=== PATIENT | male | born 1945 | race Caucasian/White ===

== ENCOUNTER 2017-05-05 07:45 | Inpatient (IN) | payer OTHER ==
--- NOTE | 2017-05-05 08:27 | PDOC ---
Attending Attestation - Resident Resident Name: Justine Prajapati - ED Attending Attestation I have performed the following: I have examined & evaluated the patient, The case was reviewed & discussed with the resident, I agree w/resident's findings & plan, Exceptions are as noted - HPI HPI: 71 yo M hx DM, BPh, HTN, HL presents with low back radiating to the R leg associated with R leg weakness, difficulty ambulating. He states that his leg keeps collapsing under him. Denies numbness. He also notes that he has urge to urinate but feels as if he has an incomplete void. Denies fever, chills. No history of IVDU. - Physicial Exam PE: GENERAL: Awake, alert, and fully oriented, in no acute distress HEAD: No signs of trauma EYES: PERRLA, EOMI, sclera anicteric, conjunctiva clear ENT: Auricles normal inspection, hearing grossly normal, nares patent, oropharynx clear without exudates. Moist mucosa NECK: Normal ROM, supple, no lymphadenopathy, JVD, or masses LUNGS: Breath sounds equal, clear to auscultation bilaterally. No wheezes, and no crackles HEART: Regular rate and rhythm, normal S1 and S2, no murmurs, rubs or gallops ABDOMEN: Soft, nontender, normoactive bowel sounds. No guarding, no rebound. No masses EXTREMITIES: Normal range of motion, no edema. No clubbing or cyanosis. No cords, erythema, or tenderness NEUROLOGICAL: Cranial nerves II through XII grossly intact. Normal speech, normal gait SKIN: Warm, Dry, normal turgor, no rashes or lesions noted. SPINE: +Midline tenderness L1-5. No overlying skin changes. - Medical Decision Making Patient with abrupt onset low back pain, now with urinary symptoms and inability to ambulate. Will obtain MRI lumbar spine for further evaluation.
--- NOTE | 2017-05-05 08:44 | PDOC ---
History of Present Illness - General Stated Complaint: FALL Time Seen by Provider: 05/05/17 08:14 History Source: Patient, EMS - History of Present Illness Initial Comments: This is a 71 yo male with h/o DM, BPH, HTN, and HLD who was BIBA for worsened chronic low back pain, leg weakness, and urinary retention. He struggles with chronic back pain which worsened to a constant 7/10 last night and is now radiating down the back of his right leg. He got up from bed to walk to the restroom and urinate this morning, and his right leg began feeling weak and heavy, and it buckled beneath him. He slumped to the ground but denies hitting/ hurting any part of his body or losing consciousness. For the past 3-4 weeks he additionally has had urinary frequency and retention (feels like he always has to urinate and is only able to express a small amount of urine despite feeling that his bladder is full and slightly painful in the low abdomen). He took Tylenol for the symptoms last night. He additionally notes recent subjective fever, chills, sweats, and diarrhea. He denies any nausea, vomiting, diarrhea, change in weight, numbness, tingling, additional weakness other than the right leg, urinary or bowel incontincne, headache, change in speech or vision, balancing difficulty, chest pain, SOB, or burning/blood/strange colors/strange odors to the urine. He has had similar low back pain before, but never with these associated symptoms. Past History - Past Medical History Allergies/Adverse Reactions: Allergies Allergy/AdvReac Type Severity Reaction Status Date / Time No Known Allergies Allergy Verified 05/05/17 08:46 Home Medications: Ambulatory Orders Alfuzosin HCl [Alfuzosin HCl ER] 10 mg PO DAILY 04/20/15 Amlodipine/Atorvastatin [Amlodipine-Atorvast 10-40 mg] 1 each PO DAILY 04/20/15 Glipizide [Glipizide ER] 10 mg PO DAILY 04/20/15 Hydrochlorothiazide [Hctz -] 12.5 mg PO DAILY 04/20/15 Metformin HCl [Metformin HCl ER] 1,000 mg PO DAILY 04/20/15 Metoprolol Succinate [Toprol XL -] 25 mg PO DAILY 04/20/15 Omeprazole [Prilosec (RX)] 40 mg PO DAILY 04/20/15 Pravastatin Sodium [Pravachol (Nf)] 40 mg PO ASDIR 05/05/17 Solifenacin Succinate [Vesicare -] 10 mg PO DAILY 05/05/17 Diabetes: Yes Disorders: Yes (KIDNEY STONES) HTN: Yes Suicide Attempt (Hx): No - Psycho/Social/Smoking Cessation Hx Anxiety: No Suicidal Ideation: No Smoking Status: No Smoking History: Former smoker Have you smoked in the past 12 months: No Number of Cigarettes Smoked Daily: 0 Hx Alcohol Use: Yes (OCCASIONALLY) Drug/Substance Use Hx: No Substance Use Type: Alcohol Review of Systems - Review of Systems Able to Perform ROS?: Yes Constitutional: Yes: Chills, Diaphoresis (intermittent), Fever (subj). No: Unexplained wgt Loss HEENTM: No: Recent change in vision, Nose Congestion, Throat Pain Respiratory: No: Cough, Shortness of Breath Cardiac (ROS): Yes: Edema. No: Chest Pain, Palpitations ABD/GI: Yes: Diarrhea. No: Constipated, Nausea, Vomiting : No: Burning, Dysuria Musculoskeletal: No: Back Pain, Neck Pain Integumentary: No: Bruising, Rash Neurological: Yes: Weakness (right leg). No: Headache, Numbness, Tingling, Dizziness Endocrine: No: Unexplained Weight Gain, Unexplained Weight Loss *Physical Exam - Physical Exam General Appearance: Yes: Nourished, Appropriately Dressed, Obese, Other. No: Apparent Distress HEENT: positive: EOMI, MARIELLE, Normal Voice, Symmetrical, Hearing Grossly Normal. negative: Scleral Icterus (R), Scleral Icterus (L), Muffled/Hoarse voice, Nasal Congestion Neck: positive: Trachea midline, Supple. negative: Tender, Rigid Respiratory/Chest: positive: Lungs Clear, Normal Breath Sounds. negative: Respiratory Distress, Crackles, Rhonchi, Stridor, Wheezing Cardiovascular: positive: Regular Rhythm, Regular Rate, Edema, Systolic Murmur Gastrointestinal/Abdominal: positive: Normal Bowel Sounds, Tender (suprapubic), Soft, Protuberent. negative: Organomegaly, Pulsatile Mass, Guarding Rectal Exam: positive: other (slight decreased rectal tone, no stool in rectal vault) Musculoskeletal: positive: Normal Inspection, Vertebral Tenderness (L4-S1). negative: Decreased Range of Motion Extremity: positive: Normal Capillary Refill, Normal Inspection, Normal Range of Motion, Swelling (BLE pedal edema extending to proximal lower legs). negative: Tender, Cyanosis Integumentary: positive: Normal Color, Dry, Warm. 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 negative: Facial Droop, Numbness, Sensory Deficit, Confused Heart Score/ECG Review #1 ECG reviewed & interpreted by me at: 08:30 NSR rate 100, t-wave inversions in II, III, and aVF, QTc is 472 ED Treatment Course - LABORATORY CBC & Chemistry Diagram: 05/05/17 09:19 05/05/17 09:19 - RADIOLOGY Radiograph Interpretation: EXAM#: TYPE/EXAM: RESULT: [id number] MRI/LUMBAR SPINE MRI W/O CONTRAST MRI OF THE LUMBAR SPINE (without contrast) CLINICAL INFORMATION GIVEN: back pain, urinary retention, leg weakness The exam consists of sagittal and transaxial images obtained utilizing fast spin-echo and fast spin -echo STIR pulse sequences. There is maintenance of the lumbar lordosis. Minimal to mild L4-L5 and L5-S1 degenerative disc space narrowing is seen. There is minimal to mild multilevel bilateral degenerative facet hypertrophy. No discrete disc herniation is seen. There is mild L4-L5 and L5-S1 degenerative disc bulging. The remaining disc levels appear unremarkable. No central or lateral canal stenosis is noted. There is no discrete intradural abnormality. The conus medullaris appears unremarkable. No pathologic marrow signal alteration is seen. There is no vertebral body compression fracture. IMPRESSION: Mild multilevel degenerative disc bulging. Reported By: Tim Oswald MD 05/05/17 1621 Medical Decision Making - Medical Decision Making 71 YOM with h/o chronic back pain p/w worsened back pain, urinary retention, and right leg weakness. Exam notable for 3/5 strength to proximal RLE, ttp of L4-S1, mild ttp suprapubic region. DDX includes cord compression syndrome e.g. cauda equina, nerve impingement, spinal stenosis, UTI, spinal mass. Ordered is MRI lumbar spine WO, CBCD, CMP, Mg, Phos, EKG, UA cx. CBCD with WBC elevation, UA with glucosuria and proteinuria, otherwise labs WNL. MRI L-spine shows degenerative changes but no e/o cord compression/cauda equina. Case is discussed with Dr. Avila who recommends MRI C-spine and T-spine given persistent neurological sxs. Agrees with admission to inpatient for further management. Pt with persistent and slightly worsened midline L-spine pain from approximately L3-S1. Ordered is oxycodone 5 mg with partial relief. Ordered is C-spine and T-spine MRI WO contrast, CT head WO contrast. Spoke with Dr. Perico Ramsay who accepts admission to IP Med/Surg Dr. Reid. *DC/Admit/Observation/Transfer Diagnosis at time of Disposition: Urinary retention, Right leg weakness Back pain Qualifiers: Back pain location: low back pain Chronicity: unspecified Back pain laterality : midline Sciatica presence: unspecified whether sciatica present Qualified Code (s): M54.5 - Low back pain - Discharge Dispostion Condition at time of disposition: Guarded Admit: Yes - Referrals Referrals: Hiram Rich MD [Primary Care Provider] -
[2017-05-05 08:50] VITALS: BMI 35.5
[2017-05-05] MEDS ORDERED: ACETAMINOPHEN 500 MG TABLET (FP) PO ONE (09:05)
--- NOTE | 2017-05-05 09:14 | EKG ---
Test Reason : Blood Pressure : / mmHG Vent. Rate : 100 BPM Atrial Rate : 100 BPM P-R Int : 180 ms QRS Dur : 094 ms QT Int : 366 ms P-R-T Axes : 016 045 -18 degrees QTc Int : 472 ms NORMAL SINUS RHYTHM T WAVE ABNORMALITY, CONSIDER INFERIOR ISCHEMIA MARKED T WAVE ABNORMALITY, CONSIDER ANTEROLATERAL ISCHEMIA PROLONGED QT ABNORMAL ECG Confirmed by MD JONATHON, BENTON ([id number]) on 05/05/2017 9:14:38 AM Referred By: Confirmed By:BENTON HOLT MD
[2017-05-05] MEDS ORDERED: ACETAMINOPHEN 325 MG TABLET (FP) ONE (09:24)
[2017-05-05 09:42] LABS: BASOPHIL 0.3 % (0-2.0); EOSINOPHIL 0.2 % (0-4.5); MCH 29.8 pg (25.7-33.7); MCHC 33.8 g/dl (32.0-35.9); MEAN CELL VOLUME 88.2 fl (80-96); MEAN PLT VOLUME 7.8 fl (7.5-11.1); PLATELET COUNT 145 K/MM3 (134-434); RDW 13.6 % (11.9-15.9); WHITE BLOOD COUNT 13.3 K/mm3 (4.0-10.0)
[2017-05-05 09:45] LABS: URINE APPEARANCE CLEAR; URINE BILIRUBIN NEGATIVE (NEGATIVE); URINE BLOOD NEGATIVE (NEGATIVE); URINE COLOR LTYELLOW; URINE GLUCOSE (UA) 1+ (NEGATIVE); URINE KETONE NEGATIVE (NEGATIVE); URINE LEUK ESTERASE NEGATIVE (NEGATIVE); URINE NITRITE NEGATIVE (NEGATIVE); URINE UROBILINOGEN NEGATIVE mg/dL (0.2-1.0)
[2017-05-05 09:47] LABS: URINE PROTEIN 1+ (NEGATIVE)
[2017-05-05 09:51] LABS: ALBUMIN 3.7 g/dl (3.4-5.0); ANION GAP 11 (8-16); BILIRUBIN,TOTAL 1.9 mg/dL (0.2-1.0); CO2 25 mmol/L (21-32); GLUCOSE,RANDOM 149 mg/dL (74-106); PHOSPHOROUS 2.1 mg/dL (2.5-4.9); SGOT/AST 19 U/L (15-37); SGPT/ALT 35 U/L (12-78); TOT PROT 7.3 g/dl (6.4-8.2)
[2017-05-05 09:54] LABS: ALK PHOS 68 U/L (45-117)
[2017-05-05 09:55] LABS: URINE MUCUS RARE; URINE WBC 3 /hpf (3-5)
[2017-05-05 09:59] LABS: INR 1.14 (0.82-1.09); PROTHROMBIN TIME (PATIENT) 12.6 SEC (9.98-11.88)
[2017-05-05 10:01] LABS: ACTIVATED PTT 33.3 SECONDS (26.9-34.4)
[2017-05-05] MEDS ORDERED: NAPH,MB-DB/K PH,MBDB POWDER PACKET PO ONE (10:33)
[2017-05-05] MEDS ORDERED: MAGNESIUM OXIDE 400 MG TABLET (FP) PO ONE (10:33)
[2017-05-05] MEDS ORDERED: MAGNESIUM OXIDE 400 MG TABLET (FP) ONE (10:42)
[2017-05-05] MEDS ORDERED: oxyCODONE HCL 5 MG TABLET PO ONE (15:48)
[2017-05-05] MEDS ORDERED: oxyCODONE HCL 5 MG TABLET ONE (15:54)
[2017-05-05] MEDS ORDERED: morphine CARPU-JECT 2 MG/1 ML DISP.SYRIN IVPUSH PRN (19:06)
--- NOTE | 2017-05-05 20:42 | PN ---
Teaching Attending Note Name of Resident: Perico Ramsay ATTENDING PHYSICIAN STATEMENT I saw and evaluated the patient. I reviewed the resident's note and discussed the case with the resident. I agree with the resident's findings and plan as documented. SUBJECTIVE: This is a 71 year old man with a history of type 2 DM, BPH, HTN, hyperlipidemia, GERD who comes to the ER complaining of back pain, right leg weakness, and difficulty urinating. He says he had a cystoscopy last week and since then, he has been having difficulty urinating with dysuria. Last night, his chronic back pain, which is located in the middle of his lower back, became more severe. This morning, while trying to get out of bed to go to the bathroom , he noted his right leg was weak. He was unable to stand from sitting on the bed, and so he slid off the bed onto the floor. There was no head trauma, loss of consciousness. He denies pain and numbness in his right leg. OBJECTIVE: Vital Signs Period Temp Pulse Resp BP Sys/Shepherd Pulse Ox Last 24 Hr 98.1 F-99.3 F 80-96 19-20 135-159/65-78 95-96 HEART: S1S2, RRR LUNGS: Clear ABDOMEN: Obese, soft, non-tender, non-distended, normal BS EXTREMITIES: No edema BACK: No spinal, paraspinal, CVA tenderness NEUROLOGICAL: Alert, oriented. Strength 5/5 in all extremities. Patellar reflexes diminished bilaterally. Sensation intact. (+) straight leg raise on right ASSESSMENT AND PLAN: This is a 71 year old man with a history of type 2 DM, BPH, HTN, hyperlipidemia , GERD who presents to the ER with back pain, right leg weakness, and difficulty urinating. 1. Low back pain with right leg weakness - Possibly secondary to lumbar degenerative disease - Neurosurgery consulted by ER - Physical therapy 2. Hypokalemia - Replete potassium 3. Hypophosphatemia - NeutraPhos given in ER 4. Hypomagnesemia - Magnesium oxide PO given in ER - Magnesium sulfate IV 5. Moderate left C3-C4 foraminal stenosis 6. HTN - Continue Norvasc, HCTZ, Toprol XL 7. Hyperlipidemia - Continue Lipitor 8. BPH - Continue Uroxatral 9. GERD - Continue Prilosec 10. Type 2 DM - Hold Glipizide, Metformin - Fingersticks with Novolog sliding scale
--- NOTE | 2017-05-05 21:37 | HP ---
CHIEF COMPLAINT:low back pain urinary retention and right leg weakness PCP:Claudio HISTORY OF PRESENT ILLNESS: This is a 71 yo male with h/o DM, BPH, HTN, and HLD who was BIBA for worsened chronic low back pain, leg weakness, and urinary retention. Patient states his back pain got acutely worse when he woke up to go to the bathroom. He also was having difficult walking as his right leg became acutely weak. He slid slowly on to the ground but did not injure any part of his body. For the past 3-4 weeks he additionally has had urinary frequency and retention which has also gotten worse. He recently had a procedure for evaluation of his prostate by Dr. Yuval ariza, procedure sounds like and described as cystoscopy. He has had burning on urination ever since he had the procedure. He took Tylenol for the symptoms last night. Patient states he has had some chills but no fevers. He also has had 2 bowel movements recently which he describes as "normal". He denies any nausea, vomiting, diarrhea, change in weight, numbness, tingling, additional weakness other than the right leg, urinary or bowel incontinence, headache, change in speech or vision, balancing difficulty, chest pain, or shortness of breeath. he denies visual changes or neurological symptoms. Denies recent activities which may have strained his back. ER course was notable for: (1)labs (2)electrolyte repletement (3)MRI Recent Travel:Denies PAST MEDICAL HISTORY:HTN HLD DM BPH chronic back pain PAST SURGICAL HISTORY:Denies Social History: Smoking:in his youth Alcohol:1-2 drinks on weekends Drugs: denies Allergies No Known Allergies Allergy (Verified 05/05/17 08:46) HOME MEDICATIONS: Home Medications Home Medications Medication Instructions Recorded Alfuzosin HCl [Alfuzosin HCl ER] 10 mg PO DAILY 04/20/15 Amlodipine/Atorvastatin 1 each PO DAILY 04/20/15 [Amlodipine-Atorvast 10-40 mg] Glipizide [Glipizide ER] 10 mg PO DAILY 04/20/15 Hydrochlorothiazide [Hctz -] 12.5 mg PO DAILY 04/20/15 Metformin HCl [Metformin HCl ER] 1,000 mg PO DAILY 04/20/15 Metoprolol Succinate [Toprol XL -] 25 mg PO DAILY 04/20/15 Omeprazole [Prilosec (RX)] 40 mg PO DAILY 04/20/15 Pravastatin Sodium [Pravachol (Nf)] 40 mg PO ASDIR 05/05/17 Solifenacin Succinate [Vesicare -] 10 mg PO DAILY 05/05/17 REVIEW OF SYSTEMS CONSTITUTIONAL: Absent: diaphoresis, generalized weakness, malaise, loss of appetite, weight change Present: fever, chills HEENT: Absent: rhinorrhea, nasal congestion, throat pain, throat swelling, difficulty swallowing, mouth swelling, ear pain, eye pain, visual changes CARDIOVASCULAR: Absent: chest pain, syncope, palpitations, irregular heart rate, lightheadedness , peripheral edema RESPIRATORY: Absent: cough, shortness of breath, dyspnea with exertion, orthopnea, wheezing, stridor, hemoptysis GASTROINTESTINAL: Absent: abdominal pain, abdominal distension, nausea, vomiting, diarrhea, constipation, melena, hematochezia GENITOURINARY: Absent: hematuria, flank pain, genital pain Present: dysuria, frequency, urgency, hesitancy MUSCULOSKELETAL: Absent: myalgia, arthralgia, joint swelling, , neck pain Present: back pain SKIN: Absent: rash, itching, pallor HEMATOLOGIC/IMMUNOLOGIC: Absent: easy bleeding, easy bruising, lymphadenopathy, frequent infections ENDOCRINE: Absent: unexplained weight gain, unexplained weight loss, heat intolerance, cold intolerance NEUROLOGIC: Absent: headache, focal weakness or paresthesias, dizziness, unsteady gait, seizure, mental status changes, bladder or bowel incontinence PSYCHIATRIC: Absent: anxiety, depression, suicidal or homicidal ideation, hallucinations. PHYSICAL EXAMINATION Vital Signs - 24 hr 05/05/17 20:01 Temperature 98.1 F Pulse Rate [ 80 Apical] Respiratory 20 Rate Blood Pressure 135/70 [Right Arm] O2 Sat by Pulse 96 Oximetry (%) GENERAL: Awake, alert, and fully oriented, in no acute distress. HEAD: Normal with no signs of trauma. EYES: Pupils equal, round and reactive to light, extraocular movements intact, sclera anicteric, conjunctiva clear. No lid lag. EARS, NOSE, THROAT: Moist mucous membranes. NECK: Normal range of motion, supple without JVD LUNGS: Breath sounds equal, clear to auscultation bilaterally. No accessory muscle use. HEART: Regular rate and rhythm, normal S1 and S2 without murmur ABDOMEN: Soft, nontender, not distended, normoactive bowel sounds, no guarding, no rebound MUSCULOSKELETAL: Normal range of motion at all joints. No CVA tenderness. midline lumbar tenderness over L3-L4 area UPPER EXTREMITIES: 2+ pulses, warm, well-perfused. muscle strength 5/5 LOWER EXTREMITIES: warm, well-perfused. No calf tenderness. No peripheral edema. knee jerk diminished bilaterally. sensation equal in both lower extremities. Muscle strength globally 5/5/ surprisingly RLE weakness is only on ambulation while lying down strength is 5/5 at hip knee and ankle flexors and extensors. RLE straight leg raise ellicits pain in lower back NEUROLOGICAL: Cranial nerves II-XII intact. Normal speech. PSYCHIATRIC: Cooperative. Good eye contact. Appropriate mood and affect. SKIN: Warm, dry, normal turgor, no rashes or lesions noted, normal capillary refill. Rectal: no loss of tone MRI of Cervical thoracic and lumbar spine: all three read as degenerative disc bulging C3-C4 foraminal stenosis ASSESSMENT/PLAN: 71M with history of HTN DM HLD BPH presents with acute on chronic back pain associated with worsening urinary retention and right lower extremity weakness acute on chronic back pain: patient denies trauma or overuse of back muscles. possible he may be having a nerve compression due to multiple levels of degenerative disc bulging and areas of foraminal stenosis but unlikely these findings are the cause of his symptoms admit to inpatient services neuro checks q2h neurosurgery to review MRIs-Cervical thoracic and lumbar MRIs will consider neurology consult f/u neurosurgery recs urinary Retention with urinary dysuria/BPH: dysuria likely secondary to urethral trauma from procedure retention could be a manifestation of nerve compression or could be from worsening of BPH patient able to urinate at this time UA negative f/u UCx no ABx indicated at this time start doxazosin to substitute for alfuzosin restart vesicare will place blandon PRN will consider urology consult if needed-Dr. Yuval ariza Mild leukocytosis: likely reactive do not suspect infection monitor off ABx panculture of spikes Hyperbilirubinemia: will recheck in AM will fractionate bilirubin in AM HTN: restart home meds: HCTZ Amlodipine metoprolol DM: hold glipizide hold metformin BGM ACHS ISS ACHS HLD: home meds contain 2 statins pravastatin and atorvastatin in combination with amlodipine Will need to verify home meds will place on atorvastatin for now FEN: no IVF severe hypomagnesemia, hypophosphatemia, hypokalemia-repleted will recheck electrolytes in AM low sodium/diabetic diet PPx: HSQ/SCDs PPI as outpatient eill continue on protonix PT consult Patient's left with his medication list. Will need to verify some of his home meds as there is redundancy in his statins. patient seen and Case discussed with attending Dr. Georeg. Visit type - Emergency Visit Emergency Visit: Yes ED Registration Date: 05/05/17 Care time: The patient presented to the Emergency Department on the above date and was hospitalized for further evaluation of their emergent condition. - New Patient This patient is new to me today: Yes Date on this admission: 05/05/17 - Critical Care Critical Care patient: No
[2017-05-05] MEDS ORDERED: MAGNESIUM SULF 50% (8.12 MEQ/2 ML-1 GM VIAL) IVPB ONE (21:46)
[2017-05-05] MEDS ORDERED: oxyCODONE HCL 5 MG TABLET PO PRN (21:51)
[2017-05-05] MEDS ORDERED: INSULIN SLIDING SCALE (NOVOLOG) 1 VIAL SQ SCH (22:00)
[2017-05-05] MEDS ORDERED: ATORVASTATIN CA 10 MG TABLET (FP) PO SCH (22:00)
[2017-05-05] MEDS ORDERED: ATORVASTATIN CA 40 MG TABLET (FP) PO SCH (22:15)
[2017-05-05] MEDS: INSULIN SLIDING SCALE (NOVOLOG) 1 VIAL SQ SCH (22:17)
[2017-05-05] MEDS ORDERED: POTASSIUM CHLORIDE TABS 20 MEQ TABLET.ER (FP) PO ONE (22:53)
[2017-05-06] MEDS ORDERED: HEPARIN NA (PORCINE) 5,000 UNITS/ML 1ML VIAL SQ SCH (06:00)
[2017-05-06] MEDS: INSULIN SLIDING SCALE (NOVOLOG) 1 VIAL SQ SCH (07:12)
[2017-05-06 08:13] LABS: BASOPHIL 0.3 % (0-2.0); EOSINOPHIL 0.4 % (0-4.5); MCH 30.1 pg (25.7-33.7); MCHC 33.6 g/dl (32.0-35.9); MEAN CELL VOLUME 89.6 fl (80-96); MEAN PLT VOLUME 8.1 fl (7.5-11.1); PLATELET COUNT 154 K/MM3 (134-434); RDW 13.3 % (11.9-15.9); WHITE BLOOD COUNT 14.1 K/mm3 (4.0-10.0)
[2017-05-06 08:26] LABS: INR 1.22 (0.82-1.09); PROTHROMBIN TIME (PATIENT) 13.5 SEC (9.98-11.88)
[2017-05-06 08:29] LABS: ACTIVATED PTT 33.5 SECONDS (26.9-34.4)
[2017-05-06 08:43] LABS: CALCIUM 8.8 mg/dL (8.5-10.1)
[2017-05-06 08:50] LABS: ALBUMIN 3.6 g/dl (3.4-5.0); ALK PHOS 73 U/L (45-117); ANION GAP 12 (8-16); BILIRUBIN,TOTAL 2.8 mg/dL (0.2-1.0); CO2 24 mmol/L (21-32); CREATININE 1.1 mg/dL (0.7-1.3); GLUCOSE,RANDOM 201 mg/dL (74-106); MAGNESIUM 1.9 mg/dL (1.8-2.4); PHOSPHOROUS 2.4 mg/dL (2.5-4.9); SGOT/AST 12 U/L (15-37); SGPT/ALT 27 U/L (12-78); TOT PROT 7.2 g/dl (6.4-8.2)
[2017-05-06] MEDS ORDERED: PANTOPRAZOLE 40 MG TABLET (FP) PO SCH (10:00)
[2017-05-06] MEDS ORDERED: SOLIFENACIN SUCCINATE 5 MG TAB (FP) PO SCH (10:00)
[2017-05-06] MEDS ORDERED: METOPROLOL SUCCINATE 25 MG TAB.SR.24H (FP) PO SCH (10:00)
[2017-05-06] MEDS ORDERED: DOXAZOSIN MESYLATE 4 MG TABLET PO SCH (10:00)
[2017-05-06] MEDS ORDERED: HYDROCHLOROTHIAZIDE 12.5 MG CAPSULE (FP) PO SCH (10:00)
[2017-05-06] MEDS ORDERED: amLODIPine BESYLATE 10 MG TABLET (FP) PO SCH (10:00)
[2017-05-06] MEDS ORDERED: PT OWN MED DRAWER 7, Y5N ONE (10:22)
[2017-05-06] MEDS ORDERED: NAPH,MB-DB/K PH,MBDB POWDER PACKET PO ONE (10:30)
--- NOTE | 2017-05-06 10:43 | CONSULT ---
Consult - text type - Consultation Consultation Note: Asked to see this 71 year old male with a recent history of urinary difficulties and one day history of Right leg weakness. The patient reports difficulty moving his Right leg upon awakening yesterday and sliding gently to the floor when trying to get out of bed. He was unable to get up from this position without the assistance of his family. EMS was summoned and he was brought to the [facility] ER. MRI Lumbar did not identify any significant pathology which may account for these symptoms. Given that he has urinary difficulties and the entire Right leg was "heavy" and weak, it seems that this involves multiple myotomes and may represent a cord compression. MRI Cervical and Thoracic were obtained. There is no pathology identified on these studies which clearly explains his symptoms although very mild cervical spondylosis with disc bulges and mild ligamentum flavum hypertrophy narrows the spinal canal to just under 10 mm at several levels. This morning, the patient has recovered almost completely and is ambulatory. He has mild proximal Right leg weakness, but is otherwise non-focal. Case discussed with Dr. Reid. Although I am unable to establish a clear diagnosis, there does not appear to be an indication for acute Neurosurgical intervention. I have reviewed warning signs with the patient and have given him contact information to follow up with me in the clinic. All questions were answered.
[2017-05-06] MEDS ORDERED: LEVOFLOXACIN 500 MG TABLET (FP) PO SCH (10:45)
[2017-05-06 12:28] VITALS: BP 156/87; PULSE 74; TEMP 98.4
--- NOTE | 2017-05-06 16:09 | DS ---
Physical Examination Vital Signs: Vital Signs Temperature 98.4 F 05/06/17 09:00 Pulse Rate 74 05/06/17 09:00 Respiratory Rate 18 05/06/17 09:00 Blood Pressure 156/87 05/06/17 09:00 O2 Sat by Pulse Oximetry (%) 96 05/06/17 09:00 Findings/Remarks: this am , pt has minimal back pain. was able to walk and wwas steady. he felt his R leg was heavy. but able to move. no urinary retention . no numbness or tingling in LE . no incontinence to stool or urine PE : VS reviewed. NAD . CV: RRR LUng s; CTAB ext : no edema or erythema Neuro : no facial droop, EOMI, round reactive pupils . tongue and uvula at mid line. nl facial sensation . strength 5/5 in upper extremities proximally and distally. RLE eith 4/5 strength at level of hip flexion. 5/5 at knee flexionand extension, ankle dorsiflexion and plantar flexion . LLE has 5/5 strength proximally and distally. sensation to light touch NL. reflexes 2+ knee jerk and biceps and triceps reflexes. Rectal tone NL. gait: Nl , and steady Labs: CBC, BMP 05/06/17 06:45 05/06/17 06:45 Discharge Summary Reason For Visit: BACK PAIN, URINARY RETENSION Hospital Course: 71 y/o man with h/o HTN, DM , HLP, and chronic back pain who presented with worsening Lower back pain in lumbar area with RLE weakness. He also experienced urinary retention . of note patient had a problem with urinary retention for which he had a procedure with urology for. he was then started on Levaquin 5 days prior to hospitalization . At presentation , in ER, he had urgent MRI of C, T, L spine which showed no cord compression and minimal disck bulges with very mild cervical spondylosis with disc bulges and mild ligamentum flavum hypertrophy narrows the spinal canal to just under 10 mm at several levels. This am , his pain has improved , his gait has normalized and his neuro exam was notable only for R hip flexion strength of 4/5, with normal reflexes, and nL rectal tone. His urinary incontinence resolved. He was seen by neuro sx who did not think there was any indication of surgery. Although he has mild leukocytosis of 14 K , he had no sx of infection, UA was not indicative of infectionand pt had no respiratory or GI signs of infection . MRI did not show epidural abscess and he had no fever he was asked to continue his Levaquin ( prescribed x 1 week prior to presentation by his urologist) . Dspo : HOme COndition : improved F/U: with neuro Sx , PCP and urology Given prescription for CBC Condition: Improved - Instructions Diet, Activity, Other Instructions: - please follow with your PCP in 1 week - please follow with Dr. Sellers, the neuro surgeon for your back - please report any worsening pain to your doctor . and come back to ER with any weakness . - Please address with your PCP the use of insulin and glipizide - conitnue your levaquin as prescribed by your doctor . last dose 05/08 - follow with your urologist for any urinary issues. - please do not exceed 4 g of tylenol a day Referrals: Beau Avila MD, [facility] [Staff Physician] - 1 Week Hiram Rich MD [Primary Care Provider] - 1 Week Dawit Eli MD [Staff Physician] - Disposition: HOME - Home Medications Comprehensive Discharge Medication List: Ambulatory Orders Alfuzosin HCl [Alfuzosin HCl ER] 10 mg PO DAILY 04/20/15 Glipizide [Glipizide ER] 10 mg PO BID 04/20/15 Metformin HCl [Metformin HCl ER] 1,000 mg PO BID 04/20/15 Metoprolol Succinate [Toprol XL -] 25 mg PO DAILY 04/20/15 Omeprazole [Prilosec (RX)] 40 mg PO DAILY 04/20/15 Pravastatin Sodium [Pravachol -] 40 mg PO ASDIR 05/05/17 Acetaminophen [Tylenol] 650 mg PO TIDCM #1 tablet 05/06/17 Amlodipine Besylate/Benazepril [Lotrel 5-40 mg Capsule] 1 each PO DAILY Insulin (Levemir) [Levemir Vial] 60 unit SQ HS 05/06/17 Insulin Sliding Scale [Novolog Vial Sliding Scale -] See Protocol SQ AC Levofloxacin [Levaquin] 500 mg PO DAILY 05/06/17 Miscellaneous Medical Supply [Outpatient Order] 1 each ASDIR #1 misc This patient is new to me today: Yes Date on this admission: 05/06/17 Emergency Visit: Yes ED Registration Date: 05/05/17 Care time: The patient presented to the Emergency Department on the above date and was hospitalized for further evaluation of their emergent condition. Critical Care patient: No - Discharge Referral Referred to [facility] Yes Physician Referral: Hiram Snyder MD ([facility])
== END 2017-05-06 11:40 | disposition home or self-care (01) | DRG 552 ==
LOC: JER 07:45 → JERBED 18:03 → UNDOADMIN 18:31 → JERBED 18:31 → J8W 21:06
PROVIDERS: ADMIT Internal Medicine; ATTEND Internal Medicine
DX: M47.892 Other spondylosis, cervical region (principal); N40.0 Benign prostatic hyperplasia without lower urinary tract symptoms; I10 Essential (primary) hypertension; E11.9 Type 2 diabetes mellitus without complications; E78.5 Hyperlipidemia, unspecified; D72.829 Elevated white blood cell count, unspecified; E80.6 Other disorders of bilirubin metabolism; E83.42 Hypomagnesemia; E83.39 Other disorders of phosphorus metabolism; E87.6 Hypokalemia; M54.5 Low back pain; M48.02 Spinal stenosis, cervical region; Z79.4 Long term (current) use of insulin; R33.8 Other retention of urine; K21.9 Gastro-esophageal reflux disease without esophagitis
CPT/HCPCS: 36415; 72141-TC; 72146-TC; 72148-TC; 80053; 81003; 81015; 82248; 83735; 83880; 84100; 85025; 85610; 85730; 86850; 86900; 86901; 87086; 93005; 93010; 99284-25; J1644

== ENCOUNTER 2017-11-13 08:13 | Emergency (ER) | payer OTHER ==
[2017-11-13 08:19] VITALS: BP 129/73; PULSE 74; TEMP 97.7; BMI 33.2
[2017-11-13] MEDS ORDERED: ACETAMINOPHEN 325 MG TABLET (FP) PO ONE (09:32)
--- NOTE | 2017-11-13 09:44 | PDOC ---
History of Present Illness - General Chief Complaint: Headache Stated Complaint: HEAD PAIN RADIATING TO NECK Time Seen by Provider: 11/13/17 08:59 History Source: Patient Exam Limitations: No Limitations - History of Present Illness Initial Comments: 11/13/17 09:19 71-year-old male presents to the emergency department with complaints of right- sided sharp pain that began 2 days ago while watching TV. Patient denies dizziness, nausea, visual changes, weakness, dental pain, recent head injury, or history of headache. Patient states pain is now radiating to the back of his head to the top of his neck. Patient states took nothing for the pain and decided come to the ER. Timing/Duration: other (2 days) Severity: moderate Associated Symptoms: reports: headaches Past History - Travel Traveled outside of the country in the last 30 days: No - Past Medical History Allergies/Adverse Reactions: Allergies Allergy/AdvReac Type Severity Reaction Status Date / Time No Known Allergies Allergy Verified 11/13/17 08:19 Home Medications: Ambulatory Orders Alfuzosin HCl [Alfuzosin HCl ER] 10 mg PO DAILY 04/20/15 Glipizide [Glipizide ER] 10 mg PO BID 04/20/15 Metformin HCl [Metformin HCl ER] 1,000 mg PO BID 04/20/15 Metoprolol Succinate [Toprol XL -] 25 mg PO DAILY 04/20/15 Omeprazole [Prilosec (RX)] 40 mg PO DAILY 04/20/15 Pravastatin Sodium [Pravachol -] 40 mg PO ASDIR 05/05/17 Acetaminophen [Tylenol] 650 mg PO TIDCM #1 tablet 05/06/17 Amlodipine Besylate/Benazepril [Lotrel 5-40 mg Capsule] 1 each PO DAILY Insulin (Levemir) [Levemir Vial] 60 unit SQ HS 05/06/17 Insulin Sliding Scale [Novolog Vial Sliding Scale -] See Protocol SQ AC Levofloxacin [Levaquin] 500 mg PO DAILY 05/06/17 Miscellaneous Medical Supply [Outpatient Order] 1 each ASDIR #1 misc Valacyclovir HCl [Valtrex] 1,000 mg PO TID #21 tablet 11/13/17 COPD: No Diabetes: Yes Disorders: Yes (KIDNEY STONES) HTN: Yes - Suicide/Smoking/Psychosocial Hx Smoking Status: No Smoking History: Never smoked Have you smoked in the past 12 months: No Number of Cigarettes Smoked Daily: 0 Information on smoking cessation initiated: No Hx Alcohol Use: No Drug/Substance Use Hx: No Substance Use Type: Alcohol Hx Substance Use Treatment: No Patient Lives Alone: No Review of Systems - Review of Systems Able to Perform ROS?: No Constitutional: No: Symptoms Reported HEENTM: No: Symptoms Reported Respiratory: No: Symptoms reported Cardiac (ROS): No: Symptoms Reported Integumentary: No: Symptoms Reported Neurological: Yes: Headache Hematologic/Lymphatic: No: Symptoms Reported *Physical Exam - Vital Signs Last Vital Signs Temp Pulse Resp BP Pulse Ox 97.7 F 74 19 129/73 95 11/13/17 08:16 11/13/17 08:16 11/13/17 08:16 11/13/17 08:16 11/13/17 08:16 - Physical Exam General Appearance: Yes: Nourished, Appropriately Dressed. No: Apparent Distress HEENT: positive: TMs Normal (right), Pharynx Normal (no abscess , no caries) Neck: negative: Tender, Decreased range of motion, Lymphadenopathy (R), Lymphadenopathy (L) Extremity: positive: Normal Inspection Integumentary: positive: Rash (noted linear / cluster of papular vesicular lesions to right temporal hypersensitive to touch extending to the right occipital) Neurologic: positive: Motor Strength 5/5 (ambulatory with cane) Medical Decision Making - Medical Decision Making 11/13/17 09:46 Patient complains of right-sided headache for the past 2 days. Patient denies fever, ocular, oral, or auricular involvement. Patient on exam appears to have active shingles to the right temporal right occipital region. Patient given 1 Percocet along with 2 Tylenol. I will discharge home with valacyclovir. *DC/Admit/Observation/Transfer Diagnosis at time of Disposition: Shingles Qualifiers: Herpes zoster complications: without complications Qualified Code(s): B02.9 - Zoster without complications - Discharge Dispostion Disposition: HOME Condition at time of disposition: Good - Prescriptions Prescriptions: Valacyclovir HCl [Valtrex] 1,000 mg PO TID #21 tablet - Referrals Referrals: Hiram Rich MD [Primary Care Provider] - - Patient Instructions Printed Discharge Instructions: DI for Shingles Additional Instructions: Please take medication 3 times a day for the next 7 days and may take Tylenol Extra Strength for discomfort every 8 hours. If symptoms do not improve for the next few days and appeared to worsen please return to the nearest ED. Otherwise may follow up with her primary care physician. Print Language: PORTUGUESE - Post Discharge Activity
[2017-11-13] MEDS ORDERED: ACETAMINOPHEN 325 MG TABLET (FP) ONE (10:08)
== END 2017-11-13 10:14 | disposition home or self-care (01) ==
LOC: JER 08:13
DX: B02.9 Zoster without complications (principal); I10 Essential (primary) hypertension; E11.9 Type 2 diabetes mellitus without complications; Z79.4 Long term (current) use of insulin; Z79.84 Long term (current) use of oral hypoglycemic drugs; Z87.442 Personal history of urinary calculi
CPT/HCPCS: 99281-25

== ENCOUNTER 2018-11-20 07:56 | Day surgery (SDC) | payer OTHER ==
[2018-11-19 11:24] VITALS: BMI 30.8
[~2018-11-20 07:56] MED LIST: ACETAMINOPHEN 325 MG TABLET (FP) PO PRN; PHENYLEPHRINE/KETOROLAC 4 ML VIAL IO ONE
[2018-11-20 08:17] VITALS: TEMP 97.4
[2018-11-20] MEDS ORDERED: KETOROLAC TROMETHAMINE 0.5% EYE DROP 1 DROP DROPS ONE (08:28)
[2018-11-20] MEDS ORDERED: CYCLOPENTOLATE HCL 1% OPHTH SOLN 2 ML BOTTLE ONE (08:28)
[2018-11-20] MEDS ORDERED: TROPICAMIDE 1% OPHTH SOLN 15 ML BOTTLE ONE (08:28)
[2018-11-20] MEDS ORDERED: PHENYLEPHRINE 2.5% OPHTH SOLN 15 ML BOTTLE ONE (08:28)
[2018-11-20] MEDS ORDERED: OFLOXACIN 0.3% OPHTHALMIC SOLUTION 5 ML BOTTLE ONE (08:28)
[2018-11-20] MEDS: KETOROLAC TROMETHAMINE 0.5% EYE DROP 1 DROP DROPS OP SCH ×3 (08:40→08:50)
[2018-11-20] MEDS: OFLOXACIN 0.3% OPHTHALMIC SOLUTION 5 ML BOTTLE OP SCH ×3 (08:40→08:50)
[2018-11-20] MEDS: CYCLOPENTOLATE HCL 1% OPHTH SOLN 2 ML BOTTLE OP SCH ×3 (08:40→08:50)
[2018-11-20] MEDS: TROPICAMIDE 1% OPHTH SOLN 15 ML BOTTLE OP SCH ×2 (08:40→08:45)
[2018-11-20] MEDS: PHENYLEPHRINE 2.5% OPHTH SOLN 15 ML BOTTLE OP SCH ×3 (08:40→08:50)
[2018-11-20] MEDS ORDERED: INSULIN REGULAR HUMAN 100 UNITS/ML *VIAL SQ ONE (08:57)
[2018-11-20] MEDS ORDERED: INSULIN (NOVOLOG) ASPART 100 UNITS/ML 10ML VIAL SQ ONE (09:15)
[2018-11-20] MEDS ORDERED: MIDAZOLAM HCL 2 MG/2 ML SINGLE DOSE VIAL ONE (10:17)
[2018-11-20] MEDS ORDERED: TETRACAINE 0.5% OPHTH SOLN 2 ML BOTTLE OS ONE (10:17)
[2018-11-20] MEDS ORDERED: POVIDONE-IODINE 5% OPHTHALMIC PREP 30 ML SOLUTION OS ONE (10:18)
[2018-11-20] MEDS ORDERED: BSS (NA/CA/MG/K) BALANCED SALT SOLUTION OPHTH SOLN 15 ML BOTTLE OS ONE (10:26)
[2018-11-20] MEDS ORDERED: LIDOCAINE HCL 1% PRESERVATIVE FREE - 30ML VIAL IO ONE (10:26)
[2018-11-20] MEDS ORDERED: CHONDROITIN SU A/HYALUR SOD 1 KIT IO ONE (10:26)
[2018-11-20] MEDS ORDERED: PHENYLEPHRINE/KETOROLAC 4 ML VIAL IO ONE (10:33)
--- NOTE | 2018-11-20 11:46 | SPEC ---
DATE OF OPERATION: DATE OF DICTATION: 11/20/2018 PREOPERATIVE DIAGNOSIS: Cataract, left eye. POSTOPERATIVE DIAGNOSIS: Cataract, left eye. OPERATION: Phacoemulsification of left cataract with posterior chamber intraocular lens implantation. The lens used [id number], 22.5-diopter power, serial number [id number]. SURGEON: Junaid Nunez MD ANESTHESIA: Topical, MAC. COMPLICATIONS: None. PROCEDURE: The patient was brought to the operating room and correctly identified along with the operative site and the correct intraocular lens morelos. The patient was then prepped and draped in the usual sterile fashion including 5% Betadine solution in the conjunctival sac and an eyelid drape. An eyelid speculum was then placed in the eye. A paracentesis port was created and approximately 0.5 mL of preservative-free lidocaine was then injected into the eye. Viscoelastic was then injected to inflate the anterior chamber. A temporal clear corneal wound was created. A continuous circular capsulorrhexis was performed. The nucleus was then hydrodissected with BSS and removed with phacoemulsification. The remaining cortical material was irrigated and aspirated. Viscoelastic was injected to inflate the capsular bag and the intraocular lens was then implanted into the capsular bag. The remaining Viscoelastic was irrigated and aspirated from the eye. The IOL was noted to be well centered and completely covered by the anterior capsulorrhexis. Topical vancomycin was placed and the eye patched and shielded. All wounds were tested and found to be watertight. No suture was placed. The eye was then shielded. The patient was then discharged from the operating room in stable condition. JUNAID NUNEZ M.D. [id number]
[2018-11-20 12:15] VITALS: BP 120/70; PULSE 52
== END 2018-11-20 12:00 | disposition home or self-care (01) ==
LOC: JASU-SURG 07:56
PROVIDERS: ATTEND Ophthalmology
PROC: 08RK3JZ Replacement of Left Lens with Synthetic Substitute, Percutaneous Approach (ICD-10-PCS; principal; 2018-11-20 10:00)
DX: H26.9 Unspecified cataract (principal)
CPT/HCPCS: 82962; C9447

== ENCOUNTER 2020-10-11 14:23 | Inpatient (IN) | payer OTHER ==
[2020-10-11] MEDS ORDERED: SODIUM CHLORIDE 500 ML IV STA (15:23)
[2020-10-11 16:50] LABS: BASO % 0.2 % (0-2.0); HEMATOCRIT 48.9 % (35.4-49); HEMOGLOBIN 16.4 GM/dL (11.7-16.9); MCH 30.7 pg (25.7-33.7); MCHC 33.6 g/dl (32.0-35.9); MEAN CELL VOLUME 91.4 fl (80-96); MEAN PLT VOLUME 9.3 fl (7.5-11.1); NEUT % 76.8 % (42.8-82.8); PLATELET COUNT 140 K/MM3 (134-434); RBC 5.35 M/mm3 (4.00-5.60); RDW 13.4 % (11.9-15.9); WHITE BLOOD COUNT 4.4 K/mm3 (4.0-10.0)
[2020-10-11 17:18] LABS: POTASSIUM 4.6 mmol/L (3.5-5.1)
[2020-10-11 17:20] LABS: ALBUMIN 3.8 g/dl (3.4-5.0)
[2020-10-11 17:21] LABS: BLOOD UREA NITROGEN 29.2 mg/dL (7-18)
[2020-10-11 17:24] LABS: CREATININE 1.9 mg/dL (0.55-1.3)
[2020-10-11 17:25] LABS: BILIRUBIN,TOTAL 1.1 mg/dL (0.2-1); TOT PROT 7.8 g/dl (6.4-8.2)
[2020-10-11] MEDS ORDERED: INSULIN REGULAR HUMAN 100 UNITS/ML *VIAL SQ ONE (17:34)
[2020-10-11] MEDS ORDERED: SODIUM CHLORIDE 1,000 ML IV STA (18:40)
[2020-10-11] MEDS ORDERED: INSULIN REGULAR HUMAN 100 UNITS/ML *VIAL IVPUSH ONE ×2 (19:32→23:56)
[2020-10-11] MEDS ORDERED: DEXTROSE 50%-WATER - 25 GM/50 ML VIAL IVPUSH PRN (19:33)
[2020-10-11] MEDS ORDERED: INSULIN REGULAR 100 UNITS in SODIUM CHLORIDE 99 ML IVPB SCH (19:45)
[2020-10-11] MEDS ORDERED: INSULIN REGULAR HUMAN 100 UNITS/ML *VIAL ONE (19:51)
[2020-10-11 19:53] LABS: VENOUS BASE EXCESS -10.7 mmol/L (-2-2); VENOUS O2 SATURATION 56.2 % (70-80); VENOUS PCO2 40.7 mmHg (38-52); VENOUS PH 7.223 (7.310-7.410)
[2020-10-11 21:24] LABS: POTASSIUM 3.6 mmol/L (3.5-5.1)
[2020-10-11 21:25] LABS: CALCIUM 7.8 mg/dL (8.5-10.1)
[2020-10-11 21:26] LABS: BLOOD UREA NITROGEN 26.6 mg/dL (7-18)
[2020-10-11 21:29] LABS: CREATININE 1.5 mg/dL (0.55-1.3)
[2020-10-11 22:20] LABS: URINE APPEARANCE CLEAR; URINE BILIRUBIN NEGATIVE (NEGATIVE); URINE COLOR YELLOW; URINE GLUCOSE (UA) 3+ (NEGATIVE); URINE KETONE 2+ (NEGATIVE); URINE LEUK ESTERASE NEGATIVE (NEGATIVE); URINE NITRITE NEGATIVE (NEGATIVE); URINE PROTEIN NEGATIVE (NEGATIVE); URINE UROBILINOGEN 0.2 mg/dL (0.2-1.0)
[2020-10-11] MEDS ORDERED: SODIUM CHLORIDE 0.45% 1,000 ML with POTASSIUM CHLORIDE 30 MEQ IV SCH (23:45)
[2020-10-12] MEDS ORDERED: SODIUM CHLORIDE FOR INHALATION 3 ML VIAL.NEB IH PRN (00:13)
[2020-10-12] MEDS ORDERED: INSULIN REGULAR HUMAN 100 UNITS/ML *VIAL ONE (00:41)
[2020-10-12 02:29] LABS: CALCIUM 8.1 mg/dL (8.5-10.1)
[2020-10-12 02:30] LABS: BLOOD UREA NITROGEN 24.9 mg/dL (7-18)
[2020-10-12 02:32] LABS: ALBUMIN 3.2 g/dl (3.4-5.0); MAGNESIUM 1.6 mg/dL (1.8-2.4)
[2020-10-12 02:33] LABS: CREATININE 1.3 mg/dL (0.55-1.3); PHOSPHOROUS 1.7 mg/dL (2.5-4.9)
[2020-10-12 02:34] LABS: BILIRUBIN,TOTAL 0.9 mg/dL (0.2-1); TOT PROT 6.6 g/dl (6.4-8.2)
[2020-10-12] MEDS ORDERED: MAGNESIUM SULF 50% (8.12 MEQ/2 ML-1 GM VIAL) IVPB ONE (02:34)
[2020-10-12 03:21] LABS: POTASSIUM 3.5 mmol/L (3.5-5.1)
[2020-10-12] MEDS ORDERED: HEPARIN NA (PORCINE) 5,000 UNITS/ML 1ML VIAL ONE ×2 (03:54→11:00)
[2020-10-12] MEDS ORDERED: MAGNESIUM SULF 50% (8.12 MEQ/2 ML-1 GM VIAL) ONE (03:54)
[2020-10-12] MEDS ORDERED: INSULIN SLIDING SCALE (NOVOLOG) 1 VIAL SQ ONE ×2 (03:55→06:59)
[2020-10-12] MEDS: INSULIN (NOVOLOG) ASPART 100 UNITS/ML 10ML VIAL SQ SCH (04:12)
[2020-10-12] MEDS: HEPARIN NA (PORCINE) 5,000 UNITS/ML 1ML VIAL SQ SCH ×2 (04:12→11:04)
[2020-10-12] MEDS ORDERED: POTASSIUM CHLORIDE TABS 20 MEQ TABLET.ER (FP) PO ONE ×2 (04:45→05:30)
[2020-10-12] MEDS: KCL 10 MEQ IVPB 10 MEQ/100 ML INFUS.BAG IVPB SCH ×3 (05:30→06:30)
[2020-10-12] MEDS ORDERED: INSULIN (NOVOLOG) ASPART 100 UNITS/ML 10ML VIAL SQ ONE (06:57)
[2020-10-12] MEDS: INSULIN SLIDING SCALE (NOVOLOG) 1 VIAL SQ SCH ×3 (07:06→17:48)
[2020-10-12 08:11] LABS: CHLORIDE 104 mmol/L (98-107); SODIUM 135 mmol/L (136-145)
[2020-10-12 08:14] LABS: ANION GAP 10 MMOL/L (8-16); BLOOD UREA NITROGEN 21.6 mg/dL (7-18); CO2 21 mmol/L (21-32); GLUCOSE,RANDOM 195 mg/dL (74-106)
[2020-10-12 08:18] LABS: PHOSPHOROUS 1.7 mg/dL (2.5-4.9)
[2020-10-12 08:32] LABS: BASO % 0.2 % (0-2.0); EOS % 0.1 % (0-4.5); HEMATOCRIT 41.3 % (35.4-49); HEMOGLOBIN 14.6 GM/dL (11.7-16.9); LYMPH % 26.8 % (8-40); MCH 30.9 pg (25.7-33.7); MCHC 35.4 g/dl (32.0-35.9); MEAN CELL VOLUME 87.3 fl (80-96); MEAN PLT VOLUME 8.7 fl (7.5-11.1); MONO % 8.7 % (3.8-10.2); NEUT % 64.2 % (42.8-82.8); PLATELET COUNT 134 K/MM3 (134-434); RBC 4.73 M/mm3 (4.00-5.60); RDW 13.4 % (11.9-15.9)
[2020-10-12] MEDS ORDERED: INSULIN (LEVEMIR) 100 UNITS/ML UNITS SQ SCH ×2 (10:00→22:00)
[2020-10-12] MEDS ORDERED: TAMSULOSIN HCL 0.4 MG CAP ONE (10:48)
[2020-10-12] MEDS ORDERED: ASPIRIN COATED 81 MG TABLET.EC ONE (10:49)
[2020-10-12] MEDS ORDERED: PANTOPRAZOLE 40 MG TABLET ONE (10:51)
[2020-10-12] MEDS ORDERED: ASCORBIC ACID 500 MG TABLET (FP) ONE (10:51)
[2020-10-12] MEDS ORDERED: amLODIPine BESYLATE 2.5 MG TABLET (FP) ONE (10:51)
[2020-10-12] MEDS ORDERED: metoPROLOL SUCCINATE 25 MG TAB.SR.24H (FP) ONE (10:52)
[2020-10-12] MEDS ORDERED: ZINC SULFATE 220 MG CAPSULE (FP) ONE (10:52)
[2020-10-12] MEDS ORDERED: INSULIN (LEVEMIR) 100 UNITS/ML UNITS SQ ONE (10:53)
[2020-10-12] MEDS: ASPIRIN COATED 81 MG TABLET.EC PO SCH (11:04)
[2020-10-12] MEDS: TAMSULOSIN HCL 0.4 MG CAP PO SCH (11:04)
[2020-10-12] MEDS: metoPROLOL SUCCINATE 25 MG TAB.SR.24H (FP) PO SCH (11:05)
[2020-10-12] MEDS: ZINC SULFATE 220 MG CAPSULE (FP) PO SCH (11:05)
[2020-10-12] MEDS: amLODIPine BESYLATE 5 MG TABLET (FP) PO SCH (11:05)
[2020-10-12] MEDS: PANTOPRAZOLE 40 MG TABLET PO SCH (11:05)
[2020-10-12] MEDS: ASCORBIC ACID 500 MG TABLET (FP) PO SCH (11:05)
[2020-10-12] MEDS: ENOXAPARIN NA (PORCINE) 40 MG/0.4 ML DISP.SYRIN SQ SCH (12:37)
[2020-10-12 12:41] LABS: LDH 158 U/L (87-246)
[2020-10-12] MEDS: DEXAMETHASONE 4 MG TABLET (FP) PO SCH (15:16)
[2020-10-12] MEDS: POTASSIUM CHLORIDE 30 MEQ in SODIUM CHLORIDE 0.45% 1,000 ML IV SCH ×2 (15:16→23:29)
[2020-10-12] MEDS: NAPH,MB-DB/K PH,MBDB POWDER PACKET PO SCH ×2 (15:16→23:28)
[2020-10-12] MEDS: INSULIN (LEVEMIR) 100 UNITS/ML UNITS SQ SCH (23:28)
[2020-10-12] MEDS: ATORVASTATIN CA 10 MG TABLET (FP) PO SCH (23:28)
[2020-10-13] MEDS: INSULIN (LEVEMIR) 100 UNITS/ML UNITS SQ SCH ×2 (06:00→22:40)
[2020-10-13] MEDS: INSULIN SLIDING SCALE (NOVOLOG) 1 VIAL SQ SCH ×3 (06:00→17:38)
[2020-10-13] MEDS ORDERED: INSULIN (LEVEMIR) 100 UNITS/ML UNITS SQ ONE (08:00)
[2020-10-13] MEDS: TAMSULOSIN HCL 0.4 MG CAP PO SCH (08:56)
[2020-10-13] MEDS: POTASSIUM CHLORIDE 30 MEQ in SODIUM CHLORIDE 0.45% 1,000 ML IV SCH (08:56)
[2020-10-13] MEDS: ENOXAPARIN NA (PORCINE) 40 MG/0.4 ML DISP.SYRIN SQ SCH (09:03)
[2020-10-13] MEDS: DEXAMETHASONE 4 MG TABLET (FP) PO SCH (09:04)
[2020-10-13] MEDS: NAPH,MB-DB/K PH,MBDB POWDER PACKET PO SCH ×2 (09:04→22:40)
[2020-10-13] MEDS: amLODIPine BESYLATE 5 MG TABLET (FP) PO SCH (09:04)
[2020-10-13] MEDS: ZINC SULFATE 220 MG CAPSULE (FP) PO SCH (09:04)
[2020-10-13] MEDS: ASPIRIN COATED 81 MG TABLET.EC PO SCH (09:04)
[2020-10-13] MEDS: metoPROLOL SUCCINATE 25 MG TAB.SR.24H (FP) PO SCH (09:04)
[2020-10-13] MEDS: PANTOPRAZOLE 40 MG TABLET PO SCH (09:04)
[2020-10-13] MEDS: ASCORBIC ACID 500 MG TABLET (FP) PO SCH (09:04)
[2020-10-13 10:16] LABS: BASO % 0.1 % (0-2.0); HEMATOCRIT 44.4 % (35.4-49); HEMOGLOBIN 15.6 GM/dL (11.7-16.9); LYMPH % 14.5 % (8-40); MCH 31.1 pg (25.7-33.7); MEAN CELL VOLUME 88.8 fl (80-96); MEAN PLT VOLUME 8.4 fl (7.5-11.1); MONO % 6.4 % (3.8-10.2); PLATELET COUNT 132 K/MM3 (134-434); RDW 13.6 % (11.9-15.9); WHITE BLOOD COUNT 3.6 K/mm3 (4.0-10.0)
[2020-10-13 10:29] LABS: POTASSIUM 4.4 mmol/L (3.5-5.1)
[2020-10-13 10:42] LABS: BLOOD UREA NITROGEN 21.9 mg/dL (7-18); CALCIUM 8.5 mg/dL (8.5-10.1)
[2020-10-13 10:43] LABS: MAGNESIUM 2.2 mg/dL (1.8-2.4)
[2020-10-13 10:46] LABS: CREATININE 1.1 mg/dL (0.55-1.3); PHOSPHOROUS 3.1 mg/dL (2.5-4.9)
[2020-10-13] MEDS ORDERED: Insulin (LOG) Aspart 100 UNITS/ML VIAL SQ SCH (11:00)
[2020-10-13] MEDS: INSULIN (NOVOLOG) ASPART 100 UNITS/ML 10ML VIAL SQ SCH (17:38)
[2020-10-13] MEDS: ATORVASTATIN CA 10 MG TABLET (FP) PO SCH (22:40)
[2020-10-14] MEDS: INSULIN SLIDING SCALE (NOVOLOG) 1 VIAL SQ SCH ×3 (06:01→17:01)
[2020-10-14] MEDS: INSULIN (NOVOLOG) ASPART 100 UNITS/ML 10ML VIAL SQ SCH ×3 (06:02→17:01)
[2020-10-14] MEDS: INSULIN (LEVEMIR) 100 UNITS/ML UNITS SQ SCH ×2 (06:04→21:29)
[2020-10-14] MEDS ORDERED: INSULIN (LEVEMIR) 100 UNITS/ML UNITS SQ ONE ×2 (08:24→08:44)
[2020-10-14] MEDS: TAMSULOSIN HCL 0.4 MG CAP PO SCH (09:06)
[2020-10-14 09:25] LABS: HEMATOCRIT 40.7 % (35.4-49); HEMOGLOBIN 14.3 GM/dL (11.7-16.9); LYMPH % 8.1 % (8-40); MCH 30.9 pg (25.7-33.7); MCHC 35.2 g/dl (32.0-35.9); MEAN CELL VOLUME 87.7 fl (80-96); MEAN PLT VOLUME 8.2 fl (7.5-11.1); MONO % 7.1 % (3.8-10.2); NEUT % 84.8 % (42.8-82.8); PLATELET COUNT 131 K/MM3 (134-434); RBC 4.64 M/mm3 (4.00-5.60); RDW 13.4 % (11.9-15.9); WHITE BLOOD COUNT 6.1 K/mm3 (4.0-10.0)
[2020-10-14 09:54] LABS: POTASSIUM 3.8 mmol/L (3.5-5.1)
[2020-10-14] MEDS: ASPIRIN COATED 81 MG TABLET.EC PO SCH (10:15)
[2020-10-14] MEDS: ASCORBIC ACID 500 MG TABLET (FP) PO SCH (10:15)
[2020-10-14] MEDS: DEXAMETHASONE 4 MG TABLET (FP) PO SCH (10:15)
[2020-10-14] MEDS: ZINC SULFATE 220 MG CAPSULE (FP) PO SCH (10:16)
[2020-10-14] MEDS: PANTOPRAZOLE 40 MG TABLET PO SCH (10:16)
[2020-10-14] MEDS: ENOXAPARIN NA (PORCINE) 40 MG/0.4 ML DISP.SYRIN SQ SCH (10:20)
[2020-10-14 10:29] LABS: ALBUMIN 2.8 g/dl (3.4-5.0); BLOOD UREA NITROGEN 20.4 mg/dL (7-18); CALCIUM 8.3 mg/dL (8.5-10.1)
[2020-10-14 10:30] LABS: MAGNESIUM 2.1 mg/dL (1.8-2.4)
[2020-10-14 10:32] LABS: CREATININE 0.8 mg/dL (0.55-1.3); PHOSPHOROUS 2.5 mg/dL (2.5-4.9)
[2020-10-14 10:33] LABS: BILIRUBIN,TOTAL 0.9 mg/dL (0.2-1); TOT PROT 6.1 g/dl (6.4-8.2)
[2020-10-14] MEDS: amLODIPine BESYLATE 5 MG TABLET (FP) PO SCH (10:42)
[2020-10-14] MEDS: metoPROLOL SUCCINATE 25 MG TAB.SR.24H (FP) PO SCH (10:42)
[2020-10-14 14:51] VITALS: BMI 28.5
[2020-10-14] MEDS: ATORVASTATIN CA 10 MG TABLET (FP) PO SCH (21:29)
[2020-10-15] MEDS: INSULIN (LEVEMIR) 100 UNITS/ML UNITS SQ SCH ×2 (06:26→22:21)
[2020-10-15] MEDS: INSULIN SLIDING SCALE (NOVOLOG) 1 VIAL SQ SCH (06:28)
[2020-10-15] MEDS: INSULIN (NOVOLOG) ASPART 100 UNITS/ML 10ML VIAL SQ SCH ×2 (06:28→18:06)
[2020-10-15 08:50] LABS: BASO % 0.1 % (0-2.0); EOS % 0.1 % (0-4.5); HEMATOCRIT 41.3 % (35.4-49); HEMOGLOBIN 14.3 GM/dL (11.7-16.9); LYMPH % 10.1 % (8-40); MCH 30.5 pg (25.7-33.7); MCHC 34.6 g/dl (32.0-35.9); MEAN PLT VOLUME 8.2 fl (7.5-11.1); MONO % 7.3 % (3.8-10.2); NEUT % 82.4 % (42.8-82.8); PLATELET COUNT 151 K/MM3 (134-434); RDW 13.2 % (11.9-15.9); WHITE BLOOD COUNT 4.4 K/mm3 (4.0-10.0)
[2020-10-15 09:09] LABS: POTASSIUM 3.9 mmol/L (3.5-5.1)
[2020-10-15 09:22] LABS: BLOOD UREA NITROGEN 20.1 mg/dL (7-18); CALCIUM 8.3 mg/dL (8.5-10.1)
[2020-10-15 09:24] LABS: ALBUMIN 2.7 g/dl (3.4-5.0)
[2020-10-15 09:26] LABS: CREATININE 0.8 mg/dL (0.55-1.3); PHOSPHOROUS 2.3 mg/dL (2.5-4.9)
[2020-10-15 09:28] LABS: TOT PROT 6.1 g/dl (6.4-8.2)
[2020-10-15] MEDS ORDERED: INSULIN (LEVEMIR) 100 UNITS/ML UNITS SQ ONE (10:30)
[2020-10-15] MEDS ORDERED: INSULIN (NOVOLOG) ASPART 100 UNITS/ML 10ML VIAL SQ SCH (11:00)
[2020-10-15] MEDS: ZINC SULFATE 220 MG CAPSULE (FP) PO SCH (11:05)
[2020-10-15] MEDS: amLODIPine BESYLATE 5 MG TABLET (FP) PO SCH (11:05)
[2020-10-15] MEDS: TAMSULOSIN HCL 0.4 MG CAP PO SCH (11:05)
[2020-10-15] MEDS: PANTOPRAZOLE 40 MG TABLET PO SCH (11:05)
[2020-10-15] MEDS: ENOXAPARIN NA (PORCINE) 40 MG/0.4 ML DISP.SYRIN SQ SCH (11:05)
[2020-10-15] MEDS: metoPROLOL SUCCINATE 25 MG TAB.SR.24H (FP) PO SCH (11:05)
[2020-10-15] MEDS: ASCORBIC ACID 500 MG TABLET (FP) PO SCH (11:06)
[2020-10-15] MEDS: ASPIRIN COATED 81 MG TABLET.EC PO SCH (11:06)
[2020-10-15] MEDS: DEXAMETHASONE 4 MG TABLET (FP) PO SCH (11:08)
[2020-10-15] MEDS: DOCUSATE SODIUM 100 MG CAPSULE (FP) PO SCH (18:06)
[2020-10-15] MEDS ORDERED: INSULIN (LEVEMIR) 100 UNITS/ML UNITS SQ SCH (22:00)
[2020-10-15] MEDS: SENNOSIDES 8.6MG TABLET (FP) PO SCH (22:20)
[2020-10-15] MEDS: ATORVASTATIN CA 10 MG TABLET (FP) PO SCH (22:20)
[2020-10-15] MEDS: NAPH,MB-DB/K PH,MBDB POWDER PACKET PO SCH (22:20)
[2020-10-16] MEDS: INSULIN (NOVOLOG) ASPART 100 UNITS/ML 10ML VIAL SQ SCH ×4 (07:06→19:50)
[2020-10-16] MEDS: INSULIN (LEVEMIR) 100 UNITS/ML UNITS SQ SCH ×2 (07:06→21:45)
[2020-10-16 09:04] LABS: HEMATOCRIT 43.6 % (35.4-49); HEMOGLOBIN 15.3 GM/dL (11.7-16.9); MCH 30.8 pg (25.7-33.7); MEAN CELL VOLUME 87.9 fl (80-96); MEAN PLT VOLUME 8.2 fl (7.5-11.1); PLATELET COUNT 164 K/MM3 (134-434); RBC 4.96 M/mm3 (4.00-5.60); RDW 13.2 % (11.9-15.9); WHITE BLOOD COUNT 4.3 K/mm3 (4.0-10.0)
[2020-10-16 09:32] LABS: POTASSIUM 3.5 mmol/L (3.5-5.1)
[2020-10-16] MEDS ORDERED: DEXAMETHASONE 4 MG TABLET (FP) PO SCH (10:00)
[2020-10-16 10:20] LABS: CALCIUM 8.6 mg/dL (8.5-10.1)
[2020-10-16 10:21] LABS: ALBUMIN 2.8 g/dl (3.4-5.0); BLOOD UREA NITROGEN 19.8 mg/dL (7-18)
[2020-10-16 10:24] LABS: CREATININE 0.8 mg/dL (0.55-1.3)
[2020-10-16 10:26] LABS: TOT PROT 6.3 g/dl (6.4-8.2)
[2020-10-16 10:33] LABS: BILIRUBIN,TOTAL 1.4 mg/dL (0.2-1)
[2020-10-16] MEDS: amLODIPine BESYLATE 5 MG TABLET (FP) PO SCH (12:05)
[2020-10-16] MEDS: TAMSULOSIN HCL 0.4 MG CAP PO SCH (12:05)
[2020-10-16] MEDS: DOCUSATE SODIUM 100 MG CAPSULE (FP) PO SCH (12:05)
[2020-10-16] MEDS: ENOXAPARIN NA (PORCINE) 40 MG/0.4 ML DISP.SYRIN SQ SCH (12:05)
[2020-10-16] MEDS: ASPIRIN COATED 81 MG TABLET.EC PO SCH (12:06)
[2020-10-16] MEDS: metoPROLOL SUCCINATE 25 MG TAB.SR.24H (FP) PO SCH (12:06)
[2020-10-16] MEDS: ZINC SULFATE 220 MG CAPSULE (FP) PO SCH (12:06)
[2020-10-16] MEDS: SENNOSIDES 8.6MG TABLET (FP) PO SCH ×2 (12:06→21:46)
[2020-10-16] MEDS: ASCORBIC ACID 500 MG TABLET (FP) PO SCH (12:06)
[2020-10-16] MEDS: NAPH,MB-DB/K PH,MBDB POWDER PACKET PO SCH (12:07)
[2020-10-16] MEDS: PANTOPRAZOLE 40 MG TABLET PO SCH (12:07)
[2020-10-16] MEDS ORDERED: DEXAMETHASONE 1.5 MG TABLET PO SCH (12:27)
[2020-10-16 14:49] LABS: BILIRUBIN,DIRECT 0.3 mg/dL (0.0-0.2)
[2020-10-16] MEDS: ATORVASTATIN CA 10 MG TABLET (FP) PO SCH (21:45)
[2020-10-17] MEDS: INSULIN (LEVEMIR) 100 UNITS/ML UNITS SQ SCH ×2 (06:28→21:10)
[2020-10-17] MEDS: INSULIN (NOVOLOG) ASPART 100 UNITS/ML 10ML VIAL SQ SCH ×3 (06:29→17:22)
[2020-10-17] MEDS: ASCORBIC ACID 500 MG TABLET (FP) PO SCH (11:08)
[2020-10-17] MEDS: ASPIRIN COATED 81 MG TABLET.EC PO SCH (11:08)
[2020-10-17] MEDS: TAMSULOSIN HCL 0.4 MG CAP PO SCH (11:08)
[2020-10-17] MEDS: metoPROLOL SUCCINATE 25 MG TAB.SR.24H (FP) PO SCH (11:08)
[2020-10-17] MEDS: ZINC SULFATE 220 MG CAPSULE (FP) PO SCH (11:08)
[2020-10-17] MEDS: ENOXAPARIN NA (PORCINE) 40 MG/0.4 ML DISP.SYRIN SQ SCH (11:08)
[2020-10-17] MEDS: SENNOSIDES 8.6MG TABLET (FP) PO SCH ×2 (11:09→21:10)
[2020-10-17] MEDS: PANTOPRAZOLE 40 MG TABLET PO SCH (11:09)
[2020-10-17] MEDS: amLODIPine BESYLATE 5 MG TABLET (FP) PO SCH (11:09)
[2020-10-17] MEDS: DOCUSATE SODIUM 100 MG CAPSULE (FP) PO SCH (11:09)
[2020-10-17] MEDS ORDERED: DEXAMETHASONE 2 MG TABLET PO SCH (12:10)
[2020-10-17] MEDS: ATORVASTATIN CA 10 MG TABLET (FP) PO SCH (21:10)
[2020-10-17] MEDS ORDERED: INSULIN (NOVOLOG) ASPART 100 UNITS/ML 10ML VIAL SQ ONE (23:53)
[2020-10-18] MEDS: INSULIN (LEVEMIR) 100 UNITS/ML UNITS SQ SCH (06:04)
[2020-10-18] MEDS: INSULIN (NOVOLOG) ASPART 100 UNITS/ML 10ML VIAL SQ SCH ×2 (06:04→11:49)
[2020-10-18] MEDS: PANTOPRAZOLE 40 MG TABLET PO SCH (09:13)
[2020-10-18] MEDS: ENOXAPARIN NA (PORCINE) 40 MG/0.4 ML DISP.SYRIN SQ SCH (09:13)
[2020-10-18] MEDS: SENNOSIDES 8.6MG TABLET (FP) PO SCH (09:13)
[2020-10-18] MEDS: amLODIPine BESYLATE 5 MG TABLET (FP) PO SCH (09:14)
[2020-10-18] MEDS: metoPROLOL SUCCINATE 25 MG TAB.SR.24H (FP) PO SCH ×2 (09:14→12:27)
[2020-10-18] MEDS: ASPIRIN COATED 81 MG TABLET.EC PO SCH (09:14)
[2020-10-18] MEDS: ASCORBIC ACID 500 MG TABLET (FP) PO SCH (09:15)
[2020-10-18] MEDS: TAMSULOSIN HCL 0.4 MG CAP PO SCH (09:15)
[2020-10-18] MEDS: ZINC SULFATE 220 MG CAPSULE (FP) PO SCH (09:15)
[2020-10-18] MEDS: DOCUSATE SODIUM 100 MG CAPSULE (FP) PO SCH (09:15)
[2020-10-18] MEDS ORDERED: DEXAMETHASONE 4 MG TABLET (FP) PO SCH (10:00)
[2020-10-18 10:42] VITALS: BP 121/61; PULSE 48; TEMP 97
[2020-10-18 11:17] LABS: POTASSIUM 3.7 mmol/L (3.5-5.1)
[2020-10-18 11:19] LABS: CALCIUM 8.7 mg/dL (8.5-10.1)
[2020-10-18 11:20] LABS: BLOOD UREA NITROGEN 19.9 mg/dL (7-18)
[2020-10-18 11:23] LABS: CREATININE 0.9 mg/dL (0.55-1.3)
== END 2020-10-18 14:41 | disposition home or self-care (01) | DRG 177 ==
LOC: JER 14:23 → JERBED 22:43 → J5S 10-12 12:26
PROVIDERS: ADMIT Internal Medicine
DX: U07.1 COVID-19 (principal); E11.10 Type 2 diabetes mellitus with ketoacidosis without coma; J12.82 Pneumonia due to coronavirus disease 2019; J96.01 Acute respiratory failure with hypoxia; N17.9 Acute kidney failure, unspecified; E86.0 Dehydration; I10 Essential (primary) hypertension; E78.5 Hyperlipidemia, unspecified; N40.0 Benign prostatic hyperplasia without lower urinary tract symptoms; E66.9 Obesity, unspecified; Z68.28 Body mass index [BMI] 28.0-28.9, adult; E83.42 Hypomagnesemia; K21.9 Gastro-esophageal reflux disease without esophagitis; R56.9 Unspecified convulsions; M54.5 Low back pain
CPT/HCPCS: 36415; 71046-TC-FY; 76775-TC; 80048; 80053; 81003; 82010; 82248; 82565; 82728; 82803; 82962; 83036; 83615; 83735; 84100; 84156; 84300; 84443; 84484; 85025; 85027; 85379; 86140; 93005; 93010; 94761; 99285-25; C9803; J1644; U0003

== ENCOUNTER 2022-07-18 05:48 | Day surgery (SDC) | payer OTHER ==
[2022-07-17 08:56] VITALS: BMI 30.9
[2022-07-18 11:20] VITALS: TEMP 95
[2022-07-18 14:12] VITALS: BP 116/41; PULSE 58; RESP 16
== END 2022-07-18 12:00 | disposition home or self-care (01) ==
LOC: JASU-ENDO 05:48
PROVIDERS: ATTEND Internal Medicine Gastroenterology
PROC: 0DJD8ZZ Inspection of Lower Intestinal Tract, Via Natural or Artificial Opening Endoscopic (ICD-10-PCS; principal; 2022-07-18 11:00)
DX: Z12.11 Encounter for screening for malignant neoplasm of colon (principal); K57.30 Diverticulosis of large intestine without perforation or abscess without bleeding; K64.8 Other hemorrhoids; Z86.010 Personal history of colon polyps
CPT/HCPCS: 82962

== ENCOUNTER 2024-02-18 04:55 | Day surgery (SDC) | payer MEDICARE ==
[2024-02-14 17:29] VITALS: BMI 30.7
[2024-02-18] MEDS ORDERED: PROPOFOL 40 ML ONE (07:42)
[2024-02-18] MEDS ORDERED: LIDOCAINE HCL/PF 2% SDV 5ML VIAL ONE (07:42)
[2024-02-18] MEDS ORDERED: MIDAZOLAM HCL 2 MG/2 ML SINGLE DOSE VIAL ONE (07:42)
[2024-02-18] MEDS ORDERED: DEXAMETHASONE SOD PHOSPHATE 4 MG/1 ML VIAL ONE (07:42)
[2024-02-18] MEDS ORDERED: oxyCODONE HCL 5 MG TABLET PO PRN (09:20)
[2024-02-18] MEDS ORDERED: ONDANSETRON 4 MG/2 ML VIAL IVPUSH PRN (09:20)
[2024-02-18] MEDS: ACETAMINOPHEN 1000 MG/100 ML BAG IVPB ONE (09:42)
[2024-02-18] MEDS ORDERED: ACETAMINOPHEN INJECTION 100 ML IVPB ONE (09:42)
[2024-02-18] MEDS: LACTATED RINGERS SOLUTION 1,000 ML IV SCH (10:16)
[2024-02-18 11:16] VITALS: RESP 16; TEMP 97.8
[2024-02-18 11:49] VITALS: BP 130/60; PULSE 60
== END 2024-02-18 11:50 | disposition home or self-care (01) ==
LOC: JASU-SURG 04:55
PROVIDERS: ATTEND Urology
PROC: 0T7D8DZ Dilation of Urethra with Intraluminal Device, Via Natural or Artificial Opening Endoscopic (ICD-10-PCS; principal; 2024-02-18 08:00)
DX: N40.1 Benign prostatic hyperplasia with lower urinary tract symptoms (principal); R39.198 Other difficulties with micturition
CPT/HCPCS: C9740; L8699; 82962; 94760; J0131

== ENCOUNTER 2024-08-14 04:25 | Day surgery (SDC) | payer OTHER ==
[2024-08-06 11:54] VITALS: BMI 30.7
[2024-08-14 10:38] VITALS: TEMP 98.2
[2024-08-14 11:07] VITALS: BP 135/60; PULSE 56; RESP 18
== END 2024-08-14 11:08 | disposition home or self-care (01) ==
LOC: JASU-ENDO 04:25
PROVIDERS: ATTEND Internal Medicine Gastroenterology
PROC: 0DB78ZX Excision of Stomach, Pylorus, Via Natural or Artificial Opening Endoscopic, Diagnostic (ICD-10-PCS; 2024-08-14)
PROC: 0DB68ZX Excision of Stomach, Via Natural or Artificial Opening Endoscopic, Diagnostic (ICD-10-PCS; 2024-08-14)
PROC: 0DB98ZX Excision of Duodenum, Via Natural or Artificial Opening Endoscopic, Diagnostic (ICD-10-PCS; principal; 2024-08-14 10:00)
DX: K29.50 Unspecified chronic gastritis without bleeding (principal); K44.9 Diaphragmatic hernia without obstruction or gangrene; I10 Essential (primary) hypertension; E11.9 Type 2 diabetes mellitus without complications; Z79.4 Long term (current) use of insulin
CPT/HCPCS: 82962; 88305-TC; 88342-TC